=== PATIENT | female | born 1980 | race Caucasian/White ===

== ENCOUNTER 2022-07-31 09:18 | Emergency (ER) | payer MEDICARE, MEDICAID, SELFPAY ==
[2022-07-31 09:18] VITALS: BP 157/88; PULSE 105; RESP 16; TEMP 36.3; O2SAT 100; BMI 38.2
--- NOTE | 2022-07-31 09:31 | CT_ITS ---
STUDY: CT CERVICAL SPINE WITHOUT CONTRAST REASON FOR EXAM: Female, 42 years old. Injury/Pain RADIATION DOSAGE (If Supplied By Facility): CTDIvol = ( 28.85 ) mGy, DLP = ( 1264.76 ) mGycm TECHNIQUE: High resolution transaxial imaging was performed without contrast material. Sagittal and coronal images were reconstructed. Individualized dose optimization techniques were used for this CT. COMPARISON: None FINDINGS: Normal craniovertebral junction. There are degenerative changes of the anterior atlantoaxial articulation. Normal odontoid process. There is straightening of the normal cervical lordosis. Normal vertebral bodies and posterior osseous elements. C2-3: Right facet arthropathy with neural foramina narrowing.. Normal central canal and left intervertebral neuroforamina. C3-4: There is sclerosis of the endplate, loss of the disk height, posterior disc osteophyte complex, arthropathy of the bilateral uncovertebral joints. There is narrowing of the spinal canal and neuroforamina. C4-6: There is extensive sclerosis of the endplate, loss of the disk height, posterior disc osteophyte complex, arthropathy of the right greater than left uncovertebral joints. There is stenosis of the spinal canal and right greater than left neuroforamina. C6-7: There is extensive sclerosis of the endplate, loss of the disk height, posterior disc osteophyte complex, arthropathy of the uncovertebral joints. There is stenosis of the spinal canal and bilateral neuroforamina. C7-T1: There is sclerosis of the endplate, loss of the disk height, posterior disc osteophyte. There is normal spinal canal and neuroforamina. Normal visualized soft tissue structures. CT/Spine Cervical without Contras IMPRESSION: Multilevel degenerative changes, as described above. There is straightening of the normal lordotic curve, a nonspecific finding, which may be due to positioning or which might be due to muscle spasm. There is no acute displaced fracture or dislocation. Electronically Signed: Lo Brown MD at 10:15 EST Reading Location ID and State: , Service support ,
[2022-07-31] MEDS: Ketorolac 30 MG/ML Syringe IM (09:43)
--- NOTE | 2022-07-31 10:00 | EX.ED.DYSGE1 ---
HPI History of Present Illness Chief Complaint: Other, Pain/Inj Informant: patient Onset/Context/Timing Onset: Days Context: Gradual Onset Timing: Continuous Quality: Throbbing, spasm, sharp with movement Location: Right cervical paraspinal area Worsened by: Movement Relieved by: Nothing Narrative Narrative: Patient presents with right-sided neck pain that has been getting worse over the past couple days. Patient describes her pain as throbbing, and spasms. Patient states it is sharp with certain movements. Patient states she is having difficulty turning her head because of the pain. Patient states pain is mainly over the right side of her neck. Patient has a history of prior neck injury. Patient sees pain management for this. Patient states her normal medications have not been helping. Patient denies any paresthesias or weakness. Patient states the pain radiates into her head and into her right clavicle area. PFSH PFS Medical History Anxiety Asthma Chronic pain DDD (degenerative disc disease) Depression Herpes genitalia Home Medications cyclobenzaprine 10 mg tablet 10 mg PO QHS PRN PRN Muscle Spasm #10 TABLETS 07/31/22 [Rx Last Taken Unknown] Allergy/AdvReac Type Severity Reaction Status Date / Time No Known Allergies Allergy Verified 07/31/22 09:20 Family History no significant family his Social History Smoking Status: Current every day smoker tobacco type: cigarettes ROS ROS ED Constitutional Constitutional ED: Denies chills or fever(s) Eyes Eyes: Denies blurry vision or change in vision ENT ENT ED: Denies rhinorrhea or sore throat Cardiovascular Cardiovascular: Denies chest pain or palpitations Respiratory/Chest Respiratory/Chest: Denies cough or dyspnea Gastrointestinal Gastrointestinal: Denies nausea or vomiting Genitourinary Genitourinary ED: Denies dysuria or hematuria Musculoskeletal Musculoskeletal: Reports back pain and neck pain Integumentary Reports abscess; Denies rash Neurologic Neurologic: Reports headache(s); Denies weakness Allergic/Immunologic Allergic/Immunologic ED: Denies mouth swelling or urticaria EXAM Physical Exam Const Vital Signs: 07/31/22 09:18 Temperature 97.4 F L Temperature Source Temporal Pulse Rate 105 H Respiratory Rate 16 Blood Pressure 157/88 H Blood Pressure Mean 111 Pulse Ox 100 Oxygen Delivery Method Room Air Positive well nourished, well developed and obese General Appearance ED: well developed and NAD Nutritional Appearance: obese HEENT Reports moist mucous membranes Neck supple and no JVD Neck Narrative: There is tenderness over the right cervical paraspinal muscles. There is spasm over these muscles. There is some mild midline tenderness. There is no bony crepitance or step-off. Range of motion was limited in all motions of the cervical spine secondary to pain. Strength is 5/5 bilaterally upper and lower extremities. There are no sensory deficits noted. General: tenderness Back/Spine Cervical Spine: cervical spine tenderness Cervical Spine Tenderness Details: diffuse Extremity normal to inspection General Extremety ED: Negative for edema or tenderness General Extremity: Negative for edema Neuro oriented x3, CN's II-XII intact bilaterally and no sensory deficits noted Sensorium / Orientation: alert Motor Exam: strength 5/5 throughout Psych mental status grossly normal MDM MDM MDM Narrative Medical decision making narrative: She was given injection of Toradol here. CT scan of the cervical spine was obtained. On my independent interpretation, there are degenerative changes. There is no fracture or dislocation. There is no spondylolisthesis. Radiologist also interpreted the CT scan and agrees. They also noted straightening of the normal lordotic curve. This is most likely due to muscle spasm. On reevaluation, patient stated she was feeling better. Patient states her pain is improved. Patient was given a prescription for Flexeril. Patient is on Lyrica and the potential for respiratory depression with Lyrica and diazepam is increased. Therefore patient was given prescription for cyclobenzaprine instead. Patient was instructed to take this just at bedtime. Patient was instructed to use moist heat to the area. Patient was instructed to follow-up with her primary care physician and pain management physician in 5 to 7 days. Patient understands and is agreeable with the plan. All questions were answered. Radiography Diagnostic Testing: Clinical Impression(s) from Imaging Studies Cervical Spine CT 07/31/22 09:31 IMPRESSION: Multilevel degenerative changes, as described above. There is straightening of the normal lordotic curve, a nonspecific finding, which may be due to positioning or which might be due to muscle spasm. There is no acute displaced fracture or dislocation. Electronically Signed: Lo Brown MD at 10:15 EST , Discharge Plan Triage Chief Complaint: Other, Pain/Inj ED Provider: Herman Mcnulty Dx/Rx/DC Orders Clinical Impression: Acute cervical myofascial strain, Chronic neck pain Instructions: ED Chronic Pain, ED Neck Sprain or Strain Prescriptions: New cyclobenzaprine [cyclobenzaprine] 10 mg tablet 10 mg PO QHS PRN PRN (Reason: Muscle Spasm) Qty: 10 0RF Primary Care Provider: Tyler Villalobos Referrals: Tyler Villalobos MD [Primary Care Provider] - Disposition Disposition: Home, Self Care
== END 2022-07-31 10:46 | disposition home or self-care (01) ==
PROVIDERS: Emergency Provider Emergency Medicine; PCP Family Medicine; Visit Provider Emergency Medicine
DX: S16.1XXA Strain of muscle, fascia and tendon at neck level, initial encounter (principal); G89.29 Other chronic pain; M54.2 Cervicalgia; F17.210 Nicotine dependence, cigarettes, uncomplicated; E66.9 Obesity, unspecified; X58.XXXA Exposure to other specified factors, initial encounter
CPT/HCPCS: 72125; 96372; 99282

== ENCOUNTER 2024-01-30 08:00 | Outpatient (RCR) | payer MEDICARE, MEDICAID, SELFPAY ==
--- NOTE | 2024-01-30 09:05 | BH.SGPN.GN ---
Behaviors/Verbalizations/Mental Status: [] Eye contact is good. Motor activity is appropriate. Appearance is causal. Speech is Appropriate. Mood is depressed. Affect is congruent. Thoughts are linear and logical. No evidence of psychosis. Reviewed daily check in sheet and no reports of suicidal ideations or intent. Client Response/Progress/Benefit: [] Pt participated at times during group discussion on Cognitive Behavioral Therapy and combating negative thoughts. This was pt's first day in IOP and she briefly introduced herself stating that she had a mental break. Reports crying everyday. I just need to snap out of it. Reports significant anxiety and depression. I'm always sad. Decompensation since October 2023 which she attributes to grief. No progress noted as this was her first day in the program. Benefited from group support, encouragment, and feedback. Will continue in [facility] to prevent decompensation, stabilize mood, and improve functioning. Narrative Note: []
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
--- NOTE | 2024-01-30 09:37 | BH.COMM ---
Communication Note Communication with Client Communication Note: Met with pt to complete initial paperwork and administer the CSSR-S screening and risk assessment. Pt is moderate risk as pt denies any active SI, plan, or intent currently, but pt has history of an ?accidental suicide attempt? within the past month. Pt shared she cut her wrists ?to get attention so I could see my grandma? and she cut herself so bad, she had to get 9 stitches. Pt denies she wanted to kill herself and reports she is glad she is alive, and this scared her. Pt is future oriented. Does have thoughts of , but no SI. No report of self-harm since cutting on her wrist in December. Pt has no access to weapons. Pt a Discussed case with Dr. Prakash and pt will be admitted to [facility] tx with a diagnosis of MDD, recurrent, severe, without psychosis F 33.2.
--- NOTE | 2024-01-30 10:05 | BH.SGPN.GN ---
Behaviors/Verbalizations/Mental Status: []Patient was alert and oriented, casually dressed and groomed. Eye contact was fair, motor activity normal, speech within normal limits. Affect constricted, mood dysthymic and anxious. Thoughts linear, logical, no signs of hallucinations or delusion Client Response/Progress/Benefit: []Pt participated in the group discussions AEB providing input and taking notes. Attentive during psychoeducation Goal Setting. Participated during the discussion on common barriers and pt identified some personal barriers as goals feeling too hard, impatience, and lack of motivation. Group also identified benefits sense of purpose, improved self-confidence, more motivation for other goals, and improved mental health. Benefited from increased awareness of mental health benefits of goals as well as psychoeducation on SMART goal criteria. First day of IOP tx. Will continue in IOP to prevent decompensation, gain healthy coping skills, and improve daily functioning. ?? Narrative Note: []
--- NOTE | 2024-01-30 11:05 | BH.SGPN.GN ---
Behaviors/Verbalizations/Mental Status: []Pt alert and oriented, casually dressed and groomed. Eye contact good. Motor activity appropriate. Speech within normal limits. Affect congruent, mood anxious and depressed. Thoughts linear, logical, no signs of hallucinations or delusions. Client Response/Progress/Benefit: [] Pt was semi-engaged during discussion AEB providing input when prompted, taking notes throughout, and willing to complete the worksheet challenging them to develop a personal SMART goal. Pt chose the goal of practicing positive self-talk throughout the week. Pt stated this will help improve her mood and reduce depressive sx. Pt identified low motivation as a potential barrier. Identified solution reminding herself of the importance of following through with the goal and using opposite action. Benefited from this group by developing a short-term SMART goal related to mental health. Will continue IOP tx to improve daily functioning, increase healthy coping skills, and prevent decompensation. Narrative Note: []
--- NOTE | 2024-01-31 09:50 | BH.NA_ITS ---
Physical Data Vital Signs Pulse Rate: 91 Blood Pressure: 119/74 Height/Weight Height: 1.65 m Weight:: 90.718 kg Weight in Pounds: 200.0 lbs Current Medication Compliance Medication Compliance Do you take your medication as prescribed?: Yes Nutritional History Appetite Nutritional Instructions: Describe your appetite:: Good Additional nutritional information:: Client states she has been on Mounjaro for about 6 months and has lost about 50lbs. Functional Assessment Sleep Pattern Describe any problems with sleeping: Client states her sleep has always been very poor, with frequent nightmares, night terrors and waking up in panic. Sensory/Communication Assess Communication Problems Do you have difficulty understanding what people are saying?: No Medical Problems/History Cardiac Conditions Cardiovascular: Hypertension and Hyperlipidemia Respiratory Conditions Respiratory: Asthma and Other (See comments) (COPD) Neurological Conditions Neurological: Other (See comments) (neuropathy with numbness/tingling on bilat legs up to thighs) Metabolic Conditions Metabolic: Diabetes (diagnosed with DM II in 2015, client states her A1C is down to 5.8. Client also has a CGM and is aware of signs of hyperglycemia/hypoglycemia.) and Hypothyroidism Gastrointestinal Conditions Gastrointestinal: Constipation Musculoskeletal Conditions Musculoskeletal: Other (See comments) (client states she has an open area on her right foot that just opened up a couple of days ago- client denies signs of infection, DDD) Pain Assessment Do you have acute or chronic pain?: Yes (legs, back) Sexual History Do you have a history of sexually transmitted disease?: Yes Additional History Additional comments:: herpes Surgical History Surgical History Have you had any surgeries? If so, list type and date:: Yes (T&A in 2014) Substance Abuse Substance Abuse Please describe substance abuse in the last 30 days:: Client states she has been sober from alcohol for about 15 years. Client states she is involved in AA and first drank alcohol heavily at age 14. Client states she has been a cigarette smoker since age 11 and currently smokes 1.5 ppd. Client has a history of crack- cocaine use and had been sober for 12 years until a recent relapse where she has used once in December 2023. Client states she drinks coffee, tea and pop with caffeine- 2-3 drinks per day. Mental Status Summary Mental Status Significant Findings/Observations on Appearance and Mood:: Client is alert and oriented x 4. Client is casually groomed. Client is cooperative with assessment. Client makes good eye contact. Client's voice has normal rate and volume. Client has a full affect, and is tearful at times while talking. Client makes logical associations and has normal processing. Client denies delusions/hallucinations. Client denies SI. Suicide Assessment Suicidal Ideation Are you currently or have you been suicidal in the past?: No Suicidal Intentional Rating Scale (SIRS): No suicidal thoughts (past or present) (Client denies SI, and states that when she cut herself in December it was for attention and not a suicide attempt) Physician Notification Past Psychiatric History MH Treatment Hx Past Psychiatric Medications:: Ritalin as a child, Xanax, Klonopin, others Age of first mental health symptoms: Client states she was first treated for mental health around first grade when her parents . Client states she was given Ritalin at that time. Client states she has complex PTSD from many traumatic events in her life and states PTSD and depression have been ongoing since she was a child. Describe (age, circumstance, etc) any past hospitalizations: None. Current providers for mental health treatment (counselor, psychiatrist, corrections caseworker, etc.): Lissa Best for therapy at [facility], Dr. Mina for addiction at [facility], Dr. Mcneil at [facility] for psychiatry Fall Risk Assessment Age Age: Less than 60 Mental Status Mental Status: Willing & able to ask for assistance when needed Physical Status Physical Status: No problems Impairments Impairments: None Elimination Elimination: Continent AND independent Gait or Balance Gait or Balance: Walks independently Hx of Falls History of falls in the past 6 months: No known history Medications/Substances Psychotropics:: Antidepressants and Antihistamines (e.g. Benadryl) Others:: Antihypertensives and Diuretics Medications/substances used within the past 24 hours or ordered to administer: 3 or more of the medications/substances listed above Total Score Total Points:: 2 RN Summary of Impressions Impressions Recommendations Impressions: Psychiatric Issues: 1. Major depressive disorder, recurrent, severe without psychosis 2. Panic disorder 3. PTSD 4. Generalized anxiety disorder 5. Polysubstance abuse disorder (sober for 13 years until a relapse on December 24, 2023 1 time). 6. Primary support and financial and work issues Impression: General Medical Conditions: Client states she has an ulcer on her right foot that opened up within the last few days- client denies signs of infection, denies redness to area. Client states she has a template reproduction technician she sees every 3 months. Discussed with client due to her DM II, she should see her PCP for her wound. Client voices understanding. Level of Care How do the client's current symptoms and functional deficits support need for this level of care?: Client was referred to IOP by outpatient provider due to grief and stress. Client states she has had many losses recently- her grandma , her boyfriend left her, she is estranged from her best friend, she recently lost a job. Client states she had been sober from drugs for 12 years b ut states with the stress going on in her life, she had relapsed and used a couple of times in the last 1.5 months. Client states she cut her left wrist (that required stitches, area is now a healed scar) when her aunt told her she could not visit her grandma as she was dying and client states I wasn't trying to kill myself, I was trying to get their attention to let them now how bad they were hurting me not letting me see grandma. Client states she knew after she cut her wrist that I'm not thinking right and wanted to get some help for her mental health. Client denies SI. IOP will promote gains and prevent further decompensation while providing social support and skills training.
--- NOTE | 2024-01-31 10:10 | BH.SGPN.GN ---
Behaviors/Verbalizations/Mental Status: [] Pt alert and oriented, casually dressed and groomed. Eye contact good. Motor activity appropriate. Speech within normal limits. Affect congruent, mood anxious and depressed. Thoughts linear, logical, no signs of hallucinations or delusions. Client Response/Progress/Benefit: [] Pt active participant AEB pt providing input throughout group discussion. Pt attentive during psychoeducation about defense mechanisms. Engaged during small group discussions and helped group identify which defense mechanisms were maladaptive, adaptive, or ?somewhere in the rose.? Pt worked with small group on identifying how each defense mechanism can impact mental health and gave examples. Pt was engaged during small group discussion. ?Seemed to benefit from gaining awareness about the different defense mechanisms. Will continue in IOP to prevent decompensation, increase healthy coping, and improve functioning. Narrative Note: []
[2024-01-31 10:46] VITALS: BP 119/74; PULSE 91
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
--- NOTE | 2024-01-31 13:30 | BH.DR.ITP ---
Initial Treatment Plan Patient Information Visit Information: ADMISSION DATE: EXPECTED LOS: 4-6 weeks Problems/Symptoms Problem #1:: Depression Symptom:: Sadness, hopelessness, worthlessness, anhedonia, biological disruption of sleep, low energy, decreased concentration Problem #2:: Anxiety Symptom:: Worry, rumination, panic attacks, nightmares, flashbacks, avoidance, hypervigilance
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
--- NOTE | 2024-02-08 15:35 | BH.DS_ITS ---
Discharge Summary Demographics Date of Admission:: 01/30/24 Discharge Date: 02/08/24 Presenting Problems at Admission:: Pt is a 43-year-old female with a history of PTSD, MDD, ABDON, and polysubstance abuse disorder. Pt was referred to [facility] by her outpatient therapist due to worsening mental health symptoms related to grief and psychosocial stressors. 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 Pt shared she relapsed once on crack-cocaine due to these stressors which prior to the relapse, pt had been sober for 12 years. Pt is active in and sees her chemical dependency providers consistently. Pt's mental health symptoms include insomnia, nightmares, low energy, lack of motivation, crying spells, worthlessness, anhedonia, panic attacks, recent self-harm that resulted in stitches, and constant worry. Pt's functioning has significantly declined over the past month. Discharge Diagnoses:: Major depressive disorder, recurrent, severe without psychosis F 33.2; Panic disorder; PTSD; Generalized anxiety disorder; Polysubstance abuse disorder (sober for 13 years until a relapse on December 24, 2023 1 time) Reason for Discharge:: Pt voluntarily discharged from [facility] tx stating there's too much going on and pt was unable to commit the [facility] schedule. Treatment Progress During Treatment & Response: No progress to document as pt completed only one week of [facility] tx. Issues Still to be Addressed:: Pt's symptoms at admission are ongoing and pt can continue to benefit from meeting with her chemical dependency providers to maintain sobriety. Discharge Recommendations/Instructions:: Pt is connected through [facility] and [facility]. Pt sees Dr. Mina who monitors her medication for addiction and pt also sees Dr. Brar for mental health medications. Pt also has a chemical dependency counselor through [facility]. Discharge Handout
== END 2024-02-08 08:14 | disposition home or self-care (01) ==
LOC: BHIOP 08:00
PROVIDERS: PCP Family Medicine; Referring Provider Psychiatry & Neurology Psychiatry; Visit Provider Psychiatry & Neurology Psychiatry
DX: F33.2 Major depressive disorder, recurrent severe without psychotic features (principal); F41.1 Generalized anxiety disorder; F41.0 Panic disorder [episodic paroxysmal anxiety]; F43.10 Post-traumatic stress disorder, unspecified; F19.19 Other psychoactive substance abuse with unspecified psychoactive substance-induced disorder; Z79.899 Other long term (current) drug therapy
CPT/HCPCS: S9480; 90832; 90853

== ENCOUNTER 2024-07-17 18:57 | Emergency (ER) | payer MEDICARE, MEDICAID, SELFPAY ==
[2024-07-17 18:58] VITALS: BP 147/95; PULSE 116; RESP 18; TEMP 36; O2SAT 100; BMI 25.9
--- NOTE | 2024-07-17 19:30 | EX.ED.DYSGE1 ---
HPI History of Present Illness Chief Complaint: Wound Check Narrative Narrative: 44-year-old female past medical history of anxiety presents with complaint of feeling of popping around her left eye. She denies any loss of vision. No fevers or chills. 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 She takes her antibiotics when she can remember. She states that today on her way to her AA meeting that she felt a pop out of her left eye or around it. It happened again after the meeting. While she felt that there was fluid that was discharged from the area, she did not see any fluid. She presents to the emergency department for someone to look at her left eye and to make sure that she did not have an emergent condition. [facility] Medical History Polysubstance abuse Generalized anxiety disorder PTSD (post-traumatic stress disorder) Panic disorder Major depressive disorder, recurrent severe without psychotic features Diabetes mellitus type 2, insulin dependent DDD (degenerative disc disease) Asthma Herpes genitalia Chronic pain Home Medications ?Medication ?Instructions ?Recorded ?Last Taken ?Type adalimumab subcut 01/31/24 Unknown History atorvastatin 20 mg tablet 20 mg PO QHS 01/31/24 Unknown History buprenorphine-naloxone sublingual 01/31/24 Unknown History buspirone 10 mg tablet 30 mg PO BID 01/31/24 Unknown History doxepin 10 mg capsule 10 mg PO QHS 30 days #30 caps 01/31/24 Unknown Rx duloxetine 30 mg capsule,delayed 30 mg PO LUNCH 01/31/24 Unknown History release (Cymbalta) duloxetine 60 mg capsule,delayed 60 mg PO DAILY 01/31/24 Unknown History release (Cymbalta) furosemide 40 mg tablet (Lasix) 40 mg PO DAILY 01/31/24 Unknown History hydroxyzine pamoate 25 mg capsule 25 mg PO Q8H PRN anxiety 01/31/24 Unknown History (Vistaril) insulin degludec 100 unit/mL (3 10 unit subcut QHS 01/31/24 Unknown History mL) subcutaneous pen (Tresiba FlexTouch U-100 insulin) levothyroxine 100 mcg tablet mcg 01/31/24 Unknown History linaclotide 290 mcg capsule 290 mcg PO DAILY 01/31/24 Unknown History (Linzess) lisinopril 5 mg tablet 5 mg PO DAILY 01/31/24 Unknown History metformin 500 mg tablet 1,000 mg PO BID 01/31/24 Unknown History pregabalin 150 mg capsule (Lyrica) 150 mg PO TID 01/31/24 Unknown History tirzepatide subcut QWEEK 01/31/24 Unknown History valacyclovir 500 mg tablet 500 mg PO BID 01/31/24 Unknown History (Valtrex) Allergy/AdvReac Type Severity Reaction Status Date / Time No Known Allergies Allergy Verified 07/17/24 18:58 Surgical History History of tonsillectomy and adenoidectomy Social History Smoking Status: Current every day smoker tobacco type: cigarettes ROS ROS ED ROS Narrative Review of systems positive for popping of left eye that happened 3 times today. Questionable fluid drainage from around left eye. No loss of vision. EXAM Physical Exam Narrative Exam Narrative: Afebrile. Vital signs noted. Nontoxic-appearing. Focused physical examination of the left eye shows PERRL, EOMI. No exudate. No subconjunctival injection. Periorbital area shows no evidence of pustules or erythema. No pain with movement of eye. Her skin examination does reveal multiple areas of excoriation consistent with skin picking. Cardiovascular examination reveals a mild tachycardia. Lungs are clear to auscultation bilaterally. Abdomen is soft and nontender. She appears mildly anxious. Const Vital Signs: 07/17/24 18:58 Temperature 96.8 F L Temperature Source Temporal Pulse Rate 116 H Respiratory Rate 18 Blood Pressure 147/95 H Blood Pressure Mean 112 Pulse Ox 100 Oxygen Delivery Method Room Air MDM MDM MDM Narrative Medical decision making narrative: I do not feel laboratory work is indicated. Nor do I feel that antibiotics are indicated for her complaint around the left eye. I see no evidence of periorbital erythema which may would make me suspect that she has preseptal cellulitis. I do not think she has orbital cellulitis either. There is no evidence of stye on examination as well, no conjunctivitis. At this point in time, she will be discharged. She was reassured that her medical screening examination is negative for an emergent process. She will follow-up with her primary care provider. Disposition is discharged home in stable condition. History & Record Review Discussion w/independent historian: Patient Discharge Plan Triage Chief Complaint: Wound Check ED Provider: Thierno Mitchell Dx/Rx/DC Orders Clinical Impression: Encounter for medical screening examination, Feared condition not demonstrated Instructions: ED Screening Exam Medical Nonurgent Prescriptions: No Action doxepin 10 mg capsule 10 mg PO QHS 30 Days Qty: 30 0RF duloxetine [Cymbalta] 60 mg capsule,delayed release(DR/EC) 60 mg PO DAILY duloxetine [Cymbalta] 30 mg capsule,delayed release(DR/EC) 30 mg PO LUNCH hydroxyzine pamoate [Vistaril] 25 mg capsule 25 mg PO Q8H PRN (Reason: anxiety) pregabalin [Lyrica] 150 mg capsule 150 mg PO TID metformin 500 mg tablet 1,000 mg PO BID insulin degludec [Tresiba FlexTouch U-100] 100 unit/mL (3 mL) insulin pen 10 unit subcut QHS buprenorphine-naloxone [Suboxone] sublingual valacyclovir [Valtrex] 500 mg tablet 500 mg PO BID atorvastatin 20 mg tablet 20 mg PO QHS levothyroxine 100 mcg tablet Patient Comments: TAKE 1 TABLET BY MOUTH ONCE DAILY furosemide [Lasix] 40 mg tablet 40 mg PO DAILY lisinopril 5 mg tablet 5 mg PO DAILY Linzess 290 mcg capsule 290 mcg PO DAILY tirzepatide [Mounjaro] subcut QWEEK adalimumab [Humira Pen] subcut buspirone 10 mg tablet 30 mg PO BID Primary Care Provider: Mia Osei Referrals: Mia Osei MD [Primary Care Provider] - As soon as possible Print Language: Sammarinese Disposition Disposition: Home, Self Care
== END 2024-07-17 19:56 | disposition home or self-care (01) ==
LOC: ED 19:54
PROVIDERS: Emergency Provider Emergency Medicine; PCP Family Medicine; Visit Provider Emergency Medicine
DX: Z71.1 Person with feared health complaint in whom no diagnosis is made (principal); E11.9 Type 2 diabetes mellitus without complications; Z79.4 Long term (current) use of insulin; F17.210 Nicotine dependence, cigarettes, uncomplicated; Z79.84 Long term (current) use of oral hypoglycemic drugs
CPT/HCPCS: 99282